=== PATIENT | female | born 1970 | race Two or more races ===

== ENCOUNTER 2016-05-16 23:38 | Emergency (ER) | payer MEDICAID ==
[~2016-05-16] VITALS: Ht 175.3 cm; Wt 103.0 kg
[~2016-05-16 23:38] MED LIST: ENAL10TA PO; GLYB5TAB8 PO; METF-312 PO
[2016-05-17 00:05] VITALS: BP 155/89
== END 2016-05-17 06:59 | disposition left against medical advice (07) ==
LOC: ER 23:40
DX: M79.641 Pain in right hand (principal); M19.90 Unspecified osteoarthritis, unspecified site; Z53.21 Procedure and treatment not carried out due to patient leaving prior to being seen by health care provider; W18.39XA Other fall on same level, initial encounter; Y93.89 Activity, other specified; Y99.8 Other external cause status; Y92.89 Other specified places as the place of occurrence of the external cause
CPT/HCPCS: 73090; 73110

== ENCOUNTER 2016-05-17 07:06 | Emergency (ER) | payer MEDICAID ==
[~2016-05-17] VITALS: Ht 175.3 cm; Wt 96.2 kg
[2016-05-17 07:34] VITALS: BP 125/80
[2016-05-17] MEDS ORDERED: KETOROLAC TROMETH 60MG/2ML VIAL IM ONE (08:00)
== END 2016-05-17 08:33 | disposition home or self-care (01) ==
LOC: ER 07:06
DX: S52.514A Nondisplaced fracture of right radial styloid process, initial encounter for closed fracture (principal); S52.614A Nondisplaced fracture of right ulna styloid process, initial encounter for closed fracture; F17.210 Nicotine dependence, cigarettes, uncomplicated; F12.10 Cannabis abuse, uncomplicated; F15.10 Other stimulant abuse, uncomplicated; W01.0XXA Fall on same level from slipping, tripping and stumbling without subsequent striking against object, initial encounter; Y93.89 Activity, other specified; Y99.8 Other external cause status; Y92.59 Other trade areas as the place of occurrence of the external cause
CPT/HCPCS: 29125; 96372; 99283; J1885

== ENCOUNTER 2017-06-07 11:03 | Inpatient (IN) | payer MEDICAID ==
[~2017-06-07] VITALS: Ht 175.3 cm; Wt 112.6 kg
[~2017-06-07 11:03] MED LIST changes: -ENAL10TA PO; +ENAL10TA9 PO; -METF-312 PO; +METF-370 PO
[2017-06-07] MEDS ORDERED: cloNIDine HCL 0.1 MG TAB PO ONE (11:15)
[2017-06-07] MEDS ORDERED: IOHEXOL 300 MG/ML 100ML BOTTLE IJ ONE (11:59)
[2017-06-07 12:00] LABS: Basophils # (auto) 0 uL; Basophils % (auto) 0.7 % (0.0-2.0); Eosinophils # (auto) 0 uL; Eosinophils % (auto) 0.5 % (0.0-7.0); Hematocrit 41.3 % (36.0-46.0); Hemoglobin 13.3 g/dL (12.2-16.2); Lymphocytes # (auto) 1.2 uL; Lymphocytes % (auto) 18.4 % (10.0-50.0); Mean Corpuscular Hemoglobin 24.7 pg (28.0-32.0); Mean Corpuscular Hgb Conc. 32.2 g/dL (32.0-36.0); Mean Corpuscular Volume 76.7 fL (80.0-100.0); Monocytes # (auto) 0.3 uL; Neutrophils % (auto) 75.4 % (37.0-80.0); Nucleated Red Blood Cells % 0.1 %; Platelet Count (auto) 261 10^3/uL (140-450); Red Blood Cells 5.38 10^6/uL (4.0-5.20); Red Cell Distribution Width 15.9 % (11.8-14.3); White Blood Cell 6.6 10^3/uL (4.4-10.8)
[2017-06-07 12:25] LABS: Alanine Aminotransferase 45 U/L (13-56); Albumin 3.5 g/dL (3.4-5.0); Alkaline Phosphatase 117 U/L (45-117); Anion Gap 6 (5-15); Aspartate Aminotransferase 27 U/L (15-37); BUN/Creatinine Ratio 18.6; Bilirubin, Total 0.5 mg/dL (0.2-1.0); Blood Urea Nitrogen 13 mg/dL (7-18); Calcium 8.9 mg/dL (8.5-10.1); Carbon Dioxide 24 mmol/L (21-32); Chloride 109 mmol/L (98-107); GFR African American 115 mL/min; GFR Non-African American 95 mL/min; Glucose 253 mg/dL (74-106); Magnesium 2.1 mg/dL (1.6-2.6); Potassium 4.6 mmol/L (3.5-5.1); Sodium 139 mmol/L (136-145); Total Protein 7.8 g/dL (6.4-8.2)
[2017-06-07] MEDS ORDERED: MORPHINE SULFATE 4 MG/ML SYR/VIAL IV ONE ×2 (16:15→19:45)
[2017-06-07] MEDS ORDERED: ONDANSETRON HCL 4 MG/2 ML VIAL IV ONE ×2 (16:15→19:45)
[2017-06-07] MEDS ORDERED: DOCUSATE SOD 100 MG CAP PO PRN (17:45)
[2017-06-07] MEDS ORDERED: ACETAMINOPHEN 325 MG TAB PO PRN (17:45)
[2017-06-07] MEDS ORDERED: TEMAZEPAM 15 MG CAP PO PRN (17:45)
[2017-06-07] MEDS ORDERED: DEXTROSE (50%) 50ML SYRG IV PRN (18:00)
[2017-06-07] MEDS ORDERED: IBUPROFEN 800 MG TAB PO PRN (18:00)
[2017-06-07 19:26] LABS: Urine Bacteria NONE SEEN /hpf (None Seen); Urine Blood Negative /uL (Negative); Urine Mucus FEW (None Seen); Urine Specific Gravity 1.022 (1.001-1.035); Urine WBC 1 /hpf (0 - 5)
[2017-06-07 22:00] VITALS: BP_SYST 156; BP_SYST 167; BP_DIAS 82; BP_DIAS 89
[2017-06-07] MEDS: MORPHINE SULFATE 4 MG/ML SYR/VIAL IV PRN (22:05)
[2017-06-07] MEDS: SODIUM CHLOR 0.9% PF (SALINE LOCK) 10ML VIAL IV SCH (22:36)
[2017-06-07] MEDS: PRAVASTATIN SODIUM 20 MG TAB PO SCH (22:37)
[2017-06-07] MEDS: FAMOTIDINE 20 MG TAB PO SCH (22:37)
[2017-06-07] MEDS: InsuLIN REG 1unit/0.01ml Soln (100units/ml) SC SCH (22:44)
[2017-06-07] MEDS: ACCU-CHEK COMFORT CURVE STRIP VI SCH (22:45)
[2017-06-08] MEDS: HYDROcodone-ACET 5/325MG TAB PO PRN ×3 (00:18→10:08)
[2017-06-08] MEDS: ONDANSETRON HCL 4 MG/2 ML VIAL IV PRN ×4 (00:18→21:34)
[2017-06-08] MEDS: MORPHINE SULFATE 4 MG/ML SYR/VIAL IV PRN ×2 (03:27→13:16)
[2017-06-08 05:00] VITALS: BP 147/88
[2017-06-08 05:38] LABS: Eosinophils # (auto) 0.1 uL; Monocytes # (auto) 0.5 uL
[2017-06-08 05:41] LABS: Basophils # (auto) 0.1 uL; Basophils % (auto) 0.9 % (0.0-2.0); Eosinophils % (auto) 1.6 % (0.0-7.0); Hemoglobin 12.8 g/dL (12.2-16.2); Lymphocytes % (auto) 30.7 % (10.0-50.0); Mean Corpuscular Hgb Conc. 32.7 g/dL (32.0-36.0); Mean Corpuscular Volume 76.4 fL (80.0-100.0); Monocytes % (auto) 7.4 % (0.0-12.0); Neutrophils # (auto) 3.8 uL; Neutrophils % (auto) 59.4 % (37.0-80.0); Nucleated Red Blood Cells % 0.3 %; Platelet Count (auto) 264 10^3/uL (140-450); Red Blood Cells 5.11 10^6/uL (4.0-5.20); Red Cell Distribution Width 15.9 % (11.8-14.3); White Blood Cell 6.4 10^3/uL (4.4-10.8)
[2017-06-08 05:59] LABS: Albumin 3.4 g/dL (3.4-5.0); BUN/Creatinine Ratio 20.3; Calcium 8.6 mg/dL (8.5-10.1)
[2017-06-08 06:02] LABS: Bilirubin, Total 0.4 mg/dL (0.2-1.0); Total Protein 7.2 g/dL (6.4-8.2)
[2017-06-08] MEDS: SODIUM CHLOR 0.9% PF (SALINE LOCK) 10ML VIAL IV SCH ×3 (06:49→21:31)
[2017-06-08] MEDS: glyBURIDE 5 MG TAB PO SCH (06:49)
[2017-06-08] MEDS: InsuLIN REG 1unit/0.01ml Soln (100units/ml) SC SCH ×4 (06:49→21:33)
[2017-06-08] MEDS: INSULIN LANTUS (GLARGINE) 1 /0.01ml (100units/ml) SC SCH (06:50)
[2017-06-08] MEDS: ACCU-CHEK COMFORT CURVE STRIP VI SCH ×4 (06:50→21:33)
[2017-06-08 08:00] VITALS: BP 117/76
[2017-06-08 09:00] VITALS: BP 117/76
[2017-06-08] MEDS: MULTIPLE VITAMIN TAB PO SCH (10:09)
[2017-06-08] MEDS: FAMOTIDINE 20 MG TAB PO SCH ×2 (10:09→21:32)
[2017-06-08] MEDS: POTASSIUM CHL 10 Meq TABLET PO SCH (10:09)
[2017-06-08] MEDS: HCTZ 25 MG TAB PO SCH (10:10)
[2017-06-08] MEDS ORDERED: CALCITONIN 200 UNIT/SPRAY NASAL ONE (12:30)
[2017-06-08] MEDS ORDERED: CHOLECALCIFEROL (VITD3) 1,000 UNIT TAB PO ONE (12:30)
[2017-06-08 13:00] VITALS: BP 120/67
[2017-06-08 16:42] VITALS: BP 116/69
[2017-06-08] MEDS: HYDROcodone-ACET 10/325MG TAB PO PRN ×2 (17:19→23:26)
[2017-06-08] MEDS: PRAVASTATIN SODIUM 20 MG TAB PO SCH (21:32)
[2017-06-08] MEDS: SENNA 8.6 MG TAB PO SCH (21:32)
[2017-06-08] MEDS: MORPHINE SULF 15mg ER tab PO SCH (21:33)
[2017-06-08 22:00] VITALS: BP 120/70
[2017-06-09] MEDS: ONDANSETRON HCL 4 MG/2 ML VIAL IV PRN ×4 (04:29→22:55)
[2017-06-09] MEDS: MORPHINE SULFATE 4 MG/ML SYR/VIAL IV PRN (04:29)
[2017-06-09 05:00] VITALS: BP 119/75
[2017-06-09] MEDS: glyBURIDE 5 MG TAB PO SCH (06:23)
[2017-06-09] MEDS: SODIUM CHLOR 0.9% PF (SALINE LOCK) 10ML VIAL IV SCH ×3 (06:23→22:47)
[2017-06-09] MEDS: InsuLIN REG 1unit/0.01ml Soln (100units/ml) SC SCH ×4 (06:24→22:43)
[2017-06-09] MEDS: ACCU-CHEK COMFORT CURVE STRIP VI SCH ×4 (06:24→22:00)
[2017-06-09] MEDS: INSULIN LANTUS (GLARGINE) 1 /0.01ml (100units/ml) SC SCH (06:24)
[2017-06-09 08:55] VITALS: BP 101/55
[2017-06-09] MEDS: HCTZ 25 MG TAB PO SCH (10:00)
[2017-06-09] MEDS: CALCITONIN 200 UNIT/SPRAY NASAL SCH ×4 (10:00→14:41)
[2017-06-09] MEDS: MULTIPLE VITAMIN TAB PO SCH (10:19)
[2017-06-09] MEDS: POTASSIUM CHL 10 Meq TABLET PO SCH (10:19)
[2017-06-09] MEDS: FAMOTIDINE 20 MG TAB PO SCH ×2 (10:20→22:25)
[2017-06-09] MEDS: MORPHINE SULF 15mg ER tab PO SCH ×2 (10:20→22:26)
[2017-06-09] MEDS: CHOLECALCIFEROL (VITD3) 1,000 UNIT TAB PO SCH (10:20)
[2017-06-09 12:24] VITALS: BP 126/73
[2017-06-09 16:27] VITALS: BP 127/73
[2017-06-09] MEDS: HYDROcodone-ACET 10/325MG TAB PO PRN (18:10)
[2017-06-09 22:00] VITALS: BP 120/84
[2017-06-09] MEDS: SENNA 8.6 MG TAB PO SCH (22:23)
[2017-06-09] MEDS: PRAVASTATIN SODIUM 20 MG TAB PO SCH (22:25)
[2017-06-10] MEDS: MORPHINE SULFATE 4 MG/ML SYR/VIAL IV PRN ×2 (01:26→21:19)
[2017-06-10 05:00] VITALS: BP 111/65
[2017-06-10] MEDS: HYDROcodone-ACET 10/325MG TAB PO PRN (06:36)
[2017-06-10] MEDS: glyBURIDE 5 MG TAB PO SCH (06:37)
[2017-06-10] MEDS: SODIUM CHLOR 0.9% PF (SALINE LOCK) 10ML VIAL IV SCH ×2 (06:37→13:55)
[2017-06-10] MEDS: InsuLIN REG 1unit/0.01ml Soln (100units/ml) SC SCH ×4 (06:38→22:35)
[2017-06-10] MEDS: ACCU-CHEK COMFORT CURVE STRIP VI SCH ×4 (06:58→22:00)
[2017-06-10] MEDS: INSULIN LANTUS (GLARGINE) 1 /0.01ml (100units/ml) SC SCH (07:00)
[2017-06-10 08:58] VITALS: BP 112/67
[2017-06-10] MEDS: CALCITONIN 200 UNIT/SPRAY NASAL SCH (10:26)
[2017-06-10] MEDS: FAMOTIDINE 20 MG TAB PO SCH ×2 (10:26→21:26)
[2017-06-10] MEDS: MORPHINE SULF 15mg ER tab PO SCH ×2 (10:26→22:31)
[2017-06-10] MEDS: LACTULOSE 20Gm/30ML SOLN PO SCH (10:26)
[2017-06-10] MEDS: MULTIPLE VITAMIN TAB PO SCH (10:26)
[2017-06-10] MEDS: ONDANSETRON HCL 4 MG/2 ML VIAL IV PRN ×2 (10:27→21:23)
[2017-06-10] MEDS: CHOLECALCIFEROL (VITD3) 1,000 UNIT TAB PO SCH (10:27)
[2017-06-10 11:30] VITALS: BP 119/68
[2017-06-10] MEDS ORDERED: CARISOPRODOL 350 MG TAB PO PRN (16:45)
[2017-06-10 17:20] VITALS: BP 139/80
[2017-06-10] MEDS: SENNA 8.6 MG TAB PO SCH (21:27)
[2017-06-10] MEDS: PRAVASTATIN SODIUM 20 MG TAB PO SCH (21:27)
[2017-06-10 21:58] VITALS: BP 139/81
[2017-06-11] MEDS: SODIUM CHLOR 0.9% PF (SALINE LOCK) 10ML VIAL IV SCH ×3 (05:26→13:48)
[2017-06-11] MEDS: MORPHINE SULFATE 4 MG/ML SYR/VIAL IV PRN ×2 (05:27→10:22)
[2017-06-11] MEDS: glyBURIDE 5 MG TAB PO SCH (05:29)
[2017-06-11 05:48] VITALS: BP 114/61
[2017-06-11] MEDS: InsuLIN REG 1unit/0.01ml Soln (100units/ml) SC SCH ×2 (06:51→12:00)
[2017-06-11] MEDS: INSULIN LANTUS (GLARGINE) 1 /0.01ml (100units/ml) SC SCH (06:52)
[2017-06-11] MEDS: ACCU-CHEK COMFORT CURVE STRIP VI SCH ×2 (06:52→11:30)
[2017-06-11] MEDS: HYDROcodone-ACET 10/325MG TAB PO PRN ×2 (06:53→12:29)
[2017-06-11 08:00] VITALS: BP 101/55
[2017-06-11 09:00] VITALS: BP 130/76
[2017-06-11] MEDS: MORPHINE SULF 15mg ER tab PO SCH (10:16)
[2017-06-11] MEDS: FAMOTIDINE 20 MG TAB PO SCH (10:16)
[2017-06-11] MEDS: MULTIPLE VITAMIN TAB PO SCH (10:16)
[2017-06-11] MEDS: LACTULOSE 20Gm/30ML SOLN PO SCH (10:17)
[2017-06-11] MEDS: CHOLECALCIFEROL (VITD3) 1,000 UNIT TAB PO SCH (10:17)
[2017-06-11] MEDS: CALCITONIN 200 UNIT/SPRAY NASAL SCH (10:17)
[2017-06-11] MEDS: ONDANSETRON HCL 4 MG/2 ML VIAL IV PRN (10:25)
[2017-06-11 10:50] VITALS: BP 130/76
[2017-06-11 12:00] VITALS: BP 124/75
== END 2017-06-11 16:30 | disposition home or self-care (01) | DRG 347 ==
LOC: ER 11:03 → EDBD 11:03 → OVERFLOW 11:04 → WEST WING 21:40
PROVIDERS: ADMIT Internal Medicine; ATTEND Internal Medicine
DX: S32.029A Unspecified fracture of second lumbar vertebra, initial encounter for closed fracture (principal); E66.01 Morbid (severe) obesity due to excess calories; I10 Essential (primary) hypertension; E10.9 Type 1 diabetes mellitus without complications; E78.5 Hyperlipidemia, unspecified; F17.210 Nicotine dependence, cigarettes, uncomplicated; G89.29 Other chronic pain; W01.0XXA Fall on same level from slipping, tripping and stumbling without subsequent striking against object, initial encounter; I16.0 Hypertensive urgency; K59.00 Constipation, unspecified; G47.00 Insomnia, unspecified; F12.90 Cannabis use, unspecified, uncomplicated; F15.90 Other stimulant use, unspecified, uncomplicated; Z83.3 Family history of diabetes mellitus; Z79.4 Long term (current) use of insulin; Z68.36 Body mass index [BMI] 36.0-36.9, adult; Y93.89 Activity, other specified; Y92.091 Bathroom in other non-institutional residence as the place of occurrence of the external cause; Y99.8 Other external cause status; Z79.899 Other long term (current) drug therapy; Z98.51 Tubal ligation status; Z82.49 Family history of ischemic heart disease and other diseases of the circulatory system
CPT/HCPCS: 36415; 74176; 80053; 81001; 82962; 83036; 83735; 84443; 84484; 85025; 93005; 96374; 96375; 96376; J1815; J2405

== ENCOUNTER 2019-02-11 12:26 | Emergency (ER) | payer MEDICAID ==
[~2019-02-11] VITALS: Ht 175.3 cm; Wt 95.3 kg
[2019-02-11 12:40] VITALS: BP 144/69
[2019-02-11] MEDS ORDERED: HYDROcodone-ACET 5/325MG TAB PO ONE (13:45)
== END 2019-02-11 13:53 | disposition home or self-care (01) ==
LOC: ER 12:36
DX: S29.011A Strain of muscle and tendon of front wall of thorax, initial encounter (principal); F17.210 Nicotine dependence, cigarettes, uncomplicated; F12.10 Cannabis abuse, uncomplicated; F15.10 Other stimulant abuse, uncomplicated; E11.9 Type 2 diabetes mellitus without complications; I10 Essential (primary) hypertension; Z98.51 Tubal ligation status; V89.2XXA Person injured in unspecified motor-vehicle accident, traffic, initial encounter; Y93.I9 Activity, other involving external motion; Y92.488 Other paved roadways as the place of occurrence of the external cause; Y99.8 Other external cause status
CPT/HCPCS: 71046; 93005

== ENCOUNTER 2022-10-01 16:44 | Emergency (ER) | payer MEDICAID ==
[~2022-10-01] VITALS: Ht 172.7 cm; Wt 108.0 kg
[~2022-10-01 16:44] MED LIST changes: +ENAL10TA40 PO; -ENAL10TA9 PO
[2022-10-01] MEDS ORDERED: SODIUM CHLORIDE 0.9% 1,000 ML IV ONE (17:15)
[2022-10-01 17:50] LABS: Eosinophils # (auto) 0.1 10 ^3/uL (0-0.8); Monocytes # (auto) 0.7 10 ^3/uL (0-1.3); White Blood Cell 5.7 10^3/uL (4.4-10.8)
[2022-10-01 17:52] LABS: Basophils # (auto) 0.1 10 ^3/uL (0-0.2); Basophils % (auto) 0.9 % (0.0-2.0); Hematocrit 44.6 % (36.0-46.0); Hemoglobin 14.9 g/dL (12.2-16.2); Lymphocytes % (auto) 35.9 % (10.0-50.0); Mean Corpuscular Hemoglobin 26.9 pg (28.0-32.0); Mean Corpuscular Hgb Conc. 33.4 g/dL (32.0-36.0); Mean Corpuscular Volume 80.6 fL (80.0-100.0); Monocytes % (auto) 12.7 % (0.0-12.0); Neutrophils # (auto) 2.8 10 ^3/uL (1.6-8.6); Neutrophils % (auto) 49.5 % (37.0-80.0); Nucleated Red Blood Cells % 0.2 %; Red Blood Cells 5.53 10^6/uL (4.0-5.20); Red Cell Distribution Width 13.7 % (11.8-14.3)
[2022-10-01 18:07] LABS: Albumin 3.5 g/dL (3.4-5.0); Calcium 9.1 mg/dL (8.5-10.1); Potassium 3.5 mmol/L (3.5-5.1)
[2022-10-01 18:12] LABS: BUN/Creatinine Ratio 16.9 (10.0-20.0); Bilirubin, Total 0.4 mg/dL (0.2-1.0); Total Protein 7.1 g/dL (6.4-8.2)
[2022-10-01 18:35] LABS: Urine Bacteria FEW /hpf (None Seen); Urine Blood Negative /uL (Negative); Urine WBC 2 /hpf (0 - 5)
[2022-10-01 18:41] LABS: Alcohol, Urine < 3.0 mg/dL (0-10); Amphetamine Screen, Urine NEGATIVE (NEGATIVE); Barbiturate Scree,Urine NEGATIVE (NEGATIVE); Benzodiazephine Screen, Urine NEGATIVE (NEGATIVE); Cannabinoid Screen, Urine NEGATIVE (NEGATIVE); Cocaine Screen, Urine NEGATIVE (NEGATIVE); Opiate Scree,Urine NEGATIVE (NEGATIVE); Phencyclidine Screen, Urine NEGATIVE (NEGATIVE)
[2022-10-01] MEDS ORDERED: METOCLOPRAMIDE HCL 5MG/ml INJ 2ml VIAL IV ONE (18:45)
[2022-10-01] MEDS ORDERED: PIPERACILLIN-TAZOB 3.375GM 100 ML IV ONE (19:30)
[2022-10-01] MEDS ORDERED: METO-281 PO (20:36)
[2022-10-01] MEDS ORDERED: CIPR-173 PO (20:36)
[2022-10-01] MEDS ORDERED: METR375C PO (20:37)
[2022-10-01] MEDS ORDERED: FAMO20TA10 PO (20:37)
[2022-10-01 20:50] VITALS: BP 152/85
== END 2022-10-01 20:51 | disposition home or self-care (01) ==
LOC: ER 16:44
DX: K52.9 Noninfective gastroenteritis and colitis, unspecified (principal); I88.0 Nonspecific mesenteric lymphadenitis; R42 Dizziness and giddiness; E11.9 Type 2 diabetes mellitus without complications; I10 Essential (primary) hypertension; F17.210 Nicotine dependence, cigarettes, uncomplicated; F12.10 Cannabis abuse, uncomplicated; F15.10 Other stimulant abuse, uncomplicated; Z98.51 Tubal ligation status; Z79.899 Other long term (current) drug therapy
CPT/HCPCS: 36415; 71045; 74176; 80053; 80307; 81001; 82010; 82962; 83690; 84484; 85025; 93005; 96361; 96365; 96375; 99285; J2543; J2765; J7030

== ENCOUNTER 2024-06-04 03:29 | Emergency (ER) | payer MEDICAID ==
[~2024-06-04] VITALS: Ht 172.7 cm; Wt 107.5 kg
[~2024-06-04 03:29] MED LIST changes: +CIPR-173 PO; +FAMO20TA10 PO; +METO-281 PO; +METR375C PO
[2024-06-04 03:44] VITALS: BP 143/70; PULSE 83; RESP 18; O2SAT 99
[2024-06-04 05:35] LABS: Urine Bacteria None Seen /hpf (None Seen)
[2024-06-04 05:52] LABS: Urine Blood 2+ /uL (Negative); Urine Budding Yeast OCCASIONAL /hpf (None Seen); Urine Clarity Ex.Turbid (Clear); Urine Color Colorless (Yellow); Urine Protein, UAD 1+ (Negative); Urine Specific Gravity 1.034 (1.001-1.035); Urine Squamous Epithelial Cell FEW /hpf (<5); Urine Urobilinogen Normal (Negative); Urine WBC 1638 /HPF (0-5); Urine pH 5.5 (5.0-9.0)
[2024-06-04] MEDS ORDERED: NITR-87 PO (07:13)
--- NOTE | 2024-06-04 07:14 | ED.PDOC ---
General HPI Comments Patient complaining of burning with urination and increased urinary frequency x3 weeks. Nothing makes it better, nothing makes it worse. States he was not seen any urgent Care primary doctor in the last three weeks. Chief Complaint: Urinary Time Seen by MD: 06:43 Primary Care Provider: EMANUEL Reviewed notes: Nurses Notes Allergies: Coded Allergies: NO KNOWN ALLERGIES (Unverified , 11/04/14) Home Meds Active Scripts Famotidine (PEPCID TABLET) 20 Mg Tb, 1 TAB PO BID, #60 TAB 5 Refills Prov:AIDAN CANALES DO 10/01/22 Metronidazole (Flagyl) 375 Mg Cap, 500 MG PO TID for 7 Days, #21 CAP Prov:AIDAN CANALES DO 10/01/22 Metoclopramide Hcl (Reglan) 10 Mg Tab, 10 MG PO TIDPRN PRN for 10 Days, #30 TAB Prov:AIDAN CANALES DO 10/01/22 Ciprofloxacin Hcl (Cipro) 500 Mg Tab, 500 MG PO BID for 7 Days, #14 TAB Prov:AIDAN CANALES DO 10/01/22 Reported Medications Glyburide (Glyburide) 5 Mg Tab, 5 MG PO DAILY, TAB 11/04/14 Enalapril Maleate & Hydrochlor (Enalapril Maleate/Hydroch) 1 Tab Tab, 1 TAB PO DAILY, #30 TAB 5 Refills 11/04/14 Metformin Hydrochloride (Metformin Hcl) 500 Mg Tab, 1 TAB PO BID, #60 TAB 3 Refills 11/04/14 Information Source: Patient Mode of Arrival: Ambulatory Past Medical History PAST MEDICAL HISTORY: DM, HTN Surgical History: Tubal Ligation SANITARY INSPECTOR History: No Pertinent SANITARY INSPECTOR History Family History Family History: Unobtainable Social History Smoker: Cigarettes Alcohol: Occasionally Drugs: Marijuana, Methamphetamine Lives In: Home Constitutional: denies: chills, diaphoresis, fatigue, fever, malaise, sweats, weakness, others EENTM: denies: blurred vision, double vision, ear bleeding, ear discharge, ear drainage, ear pain, ear ringing, eye pain, eye redness, hearing loss, mouth pain, mouth swelling, nasal discharge, nose bleeding, nose congestion, nose pain, photophobia, tearing, throat pain, throat swelling, voice changes, others Respiratory: denies: cough, hemoptysis, orthopnea, SOB at rest, shortness of breath, SOB with excertion, stridor, wheezing, others Cardiovascular: denies: chest pain, dizzy spells, diaphoresis, Dyspnea on exertion, edema, irregular heart beat, left arm pain, lightheadedness, palpitations, PND, syncope, others Gastrointestinal: denies: abdomen distended, abdominal pain, blood streaked bowels, constipated, diarrhea, dysphagia, difficulty swallowing, hematemesis, melena, nausea, poor appetite, poor fluid intake, rectal bleeding, rectal pain, vomiting, others Genitourinary: reports: dysuria; denies: abnormal vagina bleeding, burning, dyspareunia, flank pain, frequency, hematuria, incontinence, pain, , vagina discharge, urgency, others Neurological: denies: dizziness, fainting, headache, left sided numbness, left sided weakness, numbness, paresthesia, pre-existing deficit, right sided numbness, right sided weakness, seizure, speech problems, tingling, tremors, weakness, others Musculoskeletal: denies: back pain, gout, joint pain, joint swelling, muscle pain, muscle stiffness, neck pain, others Integumetry: denies: bruises, change in color, change in hair/nails, dryness, laceration, lesions, lumps, rash, wounds, others Allergic/Immunocompromised: denies: Difficulty Healing, Frequent Infections, Hives, Itching, others Physical Exam General Appearance: No Apparent Distress, Normal HEENT: Normal ENT Inspection, Pharynx Normal, TMs Normal Neck: Full Range of Motion, Non-Tender, Normal, Normal Inspection Respiratory: Chest Non-Tender, Lungs Clear, No Accessory Muscle Use, No Respiratory Distress, Normal Breath Sounds Cardiovascular: No Edema, No JVD, No Murmur, No Gallop, Normal Peripheral Pulses, Regular Rate/Rhythm Breast Exam: Deferred Gastrointestinal: No Organomegaly, Non Tender, No Pulsatile Mass, Normal Bowel Sounds, Soft Genitalia: Deferred Pelvic: Deferred Rectal: Deferred Extremities: No calf tenderness, Normal capillary refill, Normal inspection, Normal range of motion, Non-tender, No pedal edema Musculoskeletal : Apperance: Normal Neurologic: Alert, technical support professional II-XII nml as Tested, No Motor Deficits, Normal Affect, Normal Mood, No Sensory Deficits Cerebellar Function: Normal Reflexes: Normal Skin: Dry, Normal Color, Warm Lymphatic: No Adenopathy Was a procedure done? Was a procedure done?: No Differential Diagnosis Kidney stone (Female): N/A Urinary Problem (Female): Urolithiasis, UTI, Vaginitis X-Ray, Labs, Meds, VS Vital Signs Date Time Temp Pulse Resp B/P (MAP) Pulse Ox O2 Delivery O2 Flow Rate FiO2 06/04/24 03:44 97.8 83 18 143/70 (94) 99 Lab Test 06/04/24 05:34 06/04/24 03:52 Range/Units Urine Color Colorless Yellow Urine Clarity Ex.turbid Clear Urine pH 5.5 5.0-9.0 Urine Specific [place] 1.034 1.001-1.035 Urine Protein 1+ H Negative Urine Ketones Negative Negative Urine Blood 2+ H Negative /uL Urine Nitrite Negative Negative Urine Bilirubin Negative Negative Urine Urobilinogen Normal Negative mg/dL Urine Leukocyte Esterase 3+ Negative /uL Urine RBC 116 0 - 4 /hpf Urine Microscopic WBC 1638 H 0-5 /HPF Urine Squamous Epithelial Cells Few <5 /hpf Urine Bacteria None seen None Seen /hpf Urine Yeast (Budding) Occasional None Seen /hpf Urine Glucose 4+ H Normal mg/dL POC Glucose 342 H 70-106 mg/dl X-Ray, Labs, Meds, VS Comment Imaging: X-rays and CT scans were reviewed and interpreted by this provider, imaging shows no fractures and no pathological disease. Pending radiology review. Laboratory: Labs reviewed and interpreted by this provider. No significant abnormalities noted. Patient has prior medical visits reviewed. Med reconciliation performed Vital signs reviewed Time of 1ST Reevaluation: 07:13 Reevaluation 1ST: Improved Patient Education/Counseling: Diagnosis, Treatment, Need For Follow Up (Patient advised to follow-up in the emergency room in the next 24 to 48 hours if symptoms do not improve. Advised follow-up with PCP in the next 3 to 5 days. Patient verbalized understanding. ) Family Education/Counseling: No Family Present Departure 1 Departure Time of Disposition: 07:12 Impression: Primary Impression: Urinary tract infection Qualified Codes: N30.01 - Acute cystitis with hematuria Disposition: HOME / SELF CARE / HOMELESS Condition: Fair e-Prescriptions Nitrofurantoin Monohydrate Mac (Macrobid) 100 Mg Cap 100 MG PO BID for 7 Days, #14 CAP Prov: CHURCH,CHRISTOPHER E BRICKMASON APPRENTICE 06/04/24 Discharged With: Self Critical Care Note Critical Care Time?: No Stability Stability form required: No Heart Score Heart Score: Heart Score Response (Comments) Value History N/A 0 EKG N/A 0 Age N/A 0 Risk Factors N/A 0 Troponin N/A 0 Total 0 MERCY CHURCH Jun 04, 2024 07:14
== END 2024-06-04 07:21 | disposition home or self-care (01) ==
LOC: ER 03:29
DX: N39.0 Urinary tract infection, site not specified (principal); E11.9 Type 2 diabetes mellitus without complications; F17.210 Nicotine dependence, cigarettes, uncomplicated; I10 Essential (primary) hypertension; Z79.84 Long term (current) use of oral hypoglycemic drugs; Z79.899 Other long term (current) drug therapy; Z98.51 Tubal ligation status
CPT/HCPCS: 81001; 82947; 82962

== ENCOUNTER 2024-07-12 00:05 | Emergency (ER) | payer MEDICAID ==
[~2024-07-12 00:05] MED LIST changes: +NITR-87 PO
== END 2024-07-12 01:10 | disposition left against medical advice (07) ==
LOC: ER 00:05
DX: H92.09 Otalgia, unspecified ear (principal); Z53.21 Procedure and treatment not carried out due to patient leaving prior to being seen by health care provider